=== PATIENT | male | born 1990 | race African-American/Black ===

== ENCOUNTER 2019-04-21 20:53 | Emergency (ER) | payer BC ==
[2019-04-21] MEDS ORDERED: SODIUM CHLORIDE 0.9% 1,000 ML IV STA (21:28)
--- NOTE | 2019-04-21 22:00 | XR ---
EXAMINATION TYPE: XR chest 2V DATE OF EXAM: 04/21/2019 COMPARISON: NONE HISTORY: Chest tightness TECHNIQUE: Frontal and lateral views of the chest are obtained. FINDINGS: Heart and mediastinum are normal. Lungs are clear. Diaphragm is normal. There are chest le ads. IMPRESSION: Normal chest.
[2019-04-21 22:05] LABS: Basophils # (A) 0.1 k/uL (0-0.2); Basophils % (A) 1 %; Eosinophils # (A) 0.1 k/uL (0-0.7); Eosinophils % (A) 1 %; HCT 40.7 % (39.0-53.0); HGB 13.6 gm/dL (13.0-17.5); Lymphocytes # (A) 2.2 k/uL (1.0-4.8); Lymphocytes % (A) 29 %; MCHC 33.4 g/dL (31.0-37.0); MCV 80.7 fL (80.0-100.0); Mean Platelet Volume 7.2; Monocytes # (A) 0.4 k/uL (0-1.0); Monocytes % (A) 6 %; Neutrophils # (A) 4.7 k/uL (1.3-7.7); Neutrophils % (A) 62 %; Platelet Count 230 k/uL (150-450); RBC 5.04 m/uL (4.30-5.90); RDW 14.2 % (11.5-15.5); WBC 7.6 k/uL (3.8-10.6)
[2019-04-21 22:22] LABS: ALT 25 U/L (21-72); AST 24 U/L (17-59); African American GFR (CKD) >90 (>60 ml/min/1.73 sqM); Albumin 4.5 g/dL (3.5-5.0); Alkaline Phosphatase 70 U/L (38-126); Anion Gap 10 mmol/L; Blood Urea Nitrogen 10 mg/dL (9-20); Calcium 9.9 mg/dL (8.4-10.2); Carbon Dioxide 25 mmol/L (22-30); Chloride 103 mmol/L (98-107); Glucose 120 mg/dL (74-99); Potassium 4.5 mmol/L (3.5-5.1); Sodium 138 mmol/L (137-145); Total Bilirubin 0.7 mg/dL (0.2-1.3); Total Protein 8.1 g/dL (6.3-8.2)
--- NOTE | 2019-04-21 22:26 | ED ---
Dizziness HPI - General Chief Complaint: Syncope Stated Complaint: Dizziness Time Seen by Provider: 04/21/19 21:13 Source: patient Mode of arrival: ambulatory Limitations: no limitations - History of Present Illness Initial Comments: Patient is a 28-year-old male presenting to the emergency Department with complaints of feeling lightheaded for the past 3 days. Patient states yesterday he had a few episodes of shortness of breath along with palpitations that lasted a few minutes each time. Today patient experienced some numbness down the left arm as well as into the left leg and he got concerned and came to the ER. Patient denies any chest pain at this time. Patient states he has never had this experience before. Patient denies history of heart disease. Patient denies any previous surgeries. Patient denies smoking or other drug use. Pat ient denies fever, chills, nausea, vomiting, diarrhea. Patient denies recent travel or history of DVT. Patient has no other complaints at this time. Upon arrival to ER, vital signs stable, afebrile. - Related Data Allergies Allergy/AdvReac Type Severity Reaction Status Date / Time No Known Allergies Allergy Verified 04/21/19 21:01 Review of Systems ROS Statement: Those systems with pertinent positive or pertinent negative responses have been documented in the HPI. ROS Other: All systems not noted in ROS Statement are negative. Past Medical History Past Medical History: No Reported History History of Any Multi-Drug Resistant Organisms: None Reported Past Surgical History: No Surgical Hx Reported Past Psychological History: No Psychological Hx Reported Smoking Status: Never smoker Past Alcohol Use History: None Reported Past Drug Use History: None Reported General Exam - General Exam Comments Initial Comments: GENERAL: Well-appearing, well-nourished and in no acute distress. HEAD: Atraumatic, normocephalic. EYES: Pupils equal round and reactive to light, extraocular movements intact, sclera anicteric, conjunctiva are normal. ENT: TMs normal, nares patent, oropharynx clear without exudates. Moist mucous membranes. NECK: Normal range of motion, supple without lymphadenopathy or JVD. LUNGS: Breath sounds clear to auscultation bilaterally and equal. No wheezes rales or rhonchi. HEART: Regular rate and rhythm without murmurs, rubs or gallops. ABDOMEN: Soft, nontender, normoactive bowel sounds. No guarding, no rebound. No masses appreciated. : Deferred EXTREMITIES: Normal range of motion, no pitting or edema. No clubbing or cyanosis. NEUROLOGICAL: Cranial nerves II through XII grossly intact. Normal speech, normal gait. Sensation equal in bilateral upper and lower extremities. Strength 5 out of 5 upper and lower extremities. PSYCH: Normal mood, normal affect. SKIN: Warm, Dry, normal turgor, no rashes or lesions noted. Limitations: no limitations Course Vital Signs 04/21/19 04/21/19 04/21/19 20:58 22:38 23:24 Temperature 98.3 F 98 F 99.4 F Pulse Rate 87 80 81 Respiratory 16 18 20 Rate Blood Pressure 143/95 137/97 131/84 O2 Sat by Pulse 98 98 98 Oximetry EKG Findings - EKG Comments: EKG Findings:: Ventricular rate 83, LA interval 212, QTC 418. Sinus rhythm with first-degree AV block. Medical Decision Making - Medical Decision Making Patient is a 28-year-old male presenting with lightheadedness 3 days as well as shortness of breath and palpitation episodes yesterday. Patient also reports left arm numbness that started today. She denies history of heart disease, DVTs, PEs. Upon arrival to ER vital signs are stable, afebrile. Patient's exam is unremarkable. CBC, CMP is within normal limits. Coags are normal. D-dimer is negative. Troponin is normal. UA and tox screen are both normal. EKG shows first-degree AV block. Was discussed with patient that his symptoms could be related to anxiety. Patient does not currently have a PCP but does have one in mind don't make an appointment. Return parameters were discussed with the patient he verbalizes understanding. At this time patient is stable for discharge and he is in agreement with this plan of care. Case discussed with Dr. Manzanares. - Lab Data Result diagrams: 04/21/19 21:47 04/21/19 21:47 Lab Results 04/21/19 04/21/19 04/21/19 Range/Units 21:47 21:47 21:47 WBC 7.6 (3.8-10.6) k/uL RBC 5.04 (4.30-5.90) m/uL Hgb 13.6 (13.0-17.5) gm/dL Hct 40.7 (39.0-53.0) % MCV 80.7 (80.0-100.0) fL MCH 27.0 (25.0-35.0) pg MCHC 33.4 (31.0-37.0) g/dL RDW 14.2 (11.5-15.5) % Plt Count 230 (150-450) k/uL Neutrophils % 62 % Lymphocytes % 29 % Monocytes % 6 % Eosinophils % 1 % Basophils % 1 % Neutrophils # 4.7 (1.3-7.7) k/uL Lymphocytes # 2.2 (1.0-4.8) k/uL Monocytes # 0.4 (0-1.0) k/uL Eosinophils # 0.1 (0-0.7) k/uL Basophils # 0.1 (0-0.2) k/uL PT 10.4 (9.0-12.0) sec INR 1.0 (<1.2) APTT 26.7 (22.0-30.0) sec D-Dimer 0.48 (<0.60) mg/L FEU Sodium 138 (137-145) mmol/L Potassium 4.5 (3.5-5.1) mmol/L Chloride 103 (98-107) mmol/L Carbon Dioxide 25 (22-30) mmol/L Anion Gap 10 mmol/L BUN 10 (9-20) mg/dL Creatinine 0.89 (0.66-1.25) mg/dL Est GFR (CKD-EPI)AfAm >90 (>60 ml/min/1.73 sqM) Est GFR (CKD-EPI)NonAf >90 (>60 ml/min/1.73 sqM) Glucose 120 H (74-99) mg/dL Calcium 9.9 (8.4-10.2) mg/dL Total Bilirubin 0.7 (0.2-1.3) mg/dL AST 24 (17-59) U/L ALT 25 (21-72) U/L Alkaline Phosphatase 70 (38-126) U/L Troponin I (0.000-0.034) ng/mL Total Protein 8.1 (6.3-8.2) g/dL Albumin 4.5 (3.5-5.0) g/dL Urine Color Urine Appearance (Clear) Urine pH (5.0-8.0) Ur Specific [place] (1.001-1.035) Urine Protein (Negative) Urine Glucose (UA) (Negative) Urine Ketones (Negative) Urine Blood (Negative) Urine Nitrite (Negative) Urine Bilirubin (Negative) Urine Urobilinogen (<2.0) mg/dL Ur Leukocyte Esterase (Negative) Urine Opiates Screen (NotDetected) Ur Oxycodone Screen (NotDetected) Urine Methadone Screen (NotDetected) Ur Propoxyphene Screen (NotDetected) Ur Barbiturates Screen (NotDetected) U Tricyclic Antidepress (NotDetected) Ur Phencyclidine Scrn (NotDetected) Ur Amphetamines Screen (NotDetected) U Methamphetamines Scrn (NotDetected) U Benzodiazepines Scrn (NotDetected) Urine Cocaine Screen (NotDetected) U Marijuana (THC) Screen (NotDetected) 04/21/19 04/21/19 04/21/19 Range/Units 21:47 22:35 22:35 WBC (3.8-10.6) k/uL RBC (4.30-5.90) m/uL Hgb (13.0-17.5) gm/dL Hct (39.0-53.0) % MCV (80.0-100.0) fL MCH (25.0-35.0) pg MCHC (31.0-37.0) g/dL RDW (11.5-15.5) % Plt Count (150-450) k/uL Neutrophils % % Lymphocytes % % Monocytes % % Eosinophils % % Basophils % % Neutrophils # (1.3-7.7) k/uL Lymphocytes # (1.0-4.8) k/uL Monocytes # (0-1.0) k/uL Eosinophils # (0-0.7) k/uL Basophils # (0-0.2) k/uL PT (9.0-12.0) sec INR (<1.2) APTT (22.0-30.0) sec D-Dimer (<0.60) mg/L FEU Sodium (137-145) mmol/L Potassium (3.5-5.1) mmol/L Chloride (98-107) mmol/L Carbon Dioxide (22-30) mmol/L Anion Gap mmol/L BUN (9-20) mg/dL Creatinine (0.66-1.25) mg/dL Est GFR (CKD-EPI)AfAm (>60 ml/min/1.73 sqM) Est GFR (CKD-EPI)NonAf (>60 ml/min/1.73 sqM) Glucose (74-99) mg/dL Calcium (8.4-10.2) mg/dL Total Bilirubin (0.2-1.3) mg/dL AST (17-59) U/L ALT (21-72) U/L Alkaline Phosphatase (38-126) U/L Troponin I <0.012 (0.000-0.034) ng/mL Total Protein (6.3-8.2) g/dL Albumin (3.5-5.0) g/dL Urine Color Light Yellow Urine Appearance Clear (Clear) Urine pH 6.0 (5.0-8.0) Ur Specific [place] 1.013 (1.001-1.035) Urine Protein Negative (Negative) Urine Glucose (UA) Negative (Negative) Urine Ketones Negative (Negative) Urine Blood Negative (Negative) Urine Nitrite Negative (Negative) Urine Bilirubin Negative (Negative) Urine Urobilinogen <2.0 (<2.0) mg/dL Ur Leukocyte Esterase Negative (Negative) Urine Opiates Screen Not Detected (NotDetected) Ur Oxycodone Screen Not Detected (NotDetected) Urine Methadone Screen Not Detected (NotDetected) Ur Propoxyphene Screen Not Detected (NotDetected) Ur Barbiturates Screen Not Detected (NotDetected) U Tricyclic Antidepress Not Detected (NotDetected) Ur Phencyclidine Scrn Not Detected (NotDetected) Ur Amphetamines Screen Not Detected (NotDetected) U Methamphetamines Scrn Not Detected (NotDetected) U Benzodiazepines Scrn Not Detected (NotDetected) Urine Cocaine Screen Not Detected (NotDetected) U Marijuana (THC) Screen Not Detected (NotDetected) Disposition Clinical Impression: Lightheadedness, Anxiety, Palpitations Disposition: HOME SELF-CARE Condition: Stable Instructions (If sedation given, give patient instructions): Lightheadedness (ED), Anxiety (ED) Additional Instructions: Please return to the Emergency Department if symptoms worsen or any other concerns. Follow-up with PCP if symptoms continue. Is patient prescribed a controlled substance at d/c from ED?: No Referrals: None,Stated [Primary Care Provider] - 1-2 days
[2019-04-21 22:30] LABS: D-Dimer 0.48 mg/L FEU (<0.60); Partial Thromboplastin Time 26.7 sec (22.0-30.0); Prothrombin Time 10.4 sec (9.0-12.0)
[2019-04-21 23:15] LABS: Appearance,Urine Clear (Clear); Bilirubin,Urine Negative (Negative); Blood,Urine Negative (Negative); Color,Urine Light Yellow; Glucose,Urine (UA) Negative (Negative); Ketones,Urine Negative (Negative); Leukocyte Esterase,Urine Negative (Negative); Nitrite,Urine Negative (Negative); Protein,Urine Negative (Negative); Specific Gravity,Urine 1.013 (1.001-1.035); Urobilinogen,Urine <2.0 mg/dL (<2.0)
[2019-04-21 23:25] VITALS: BP 131/84; PULSE 81; TEMP 99.4
[2019-04-21 23:27] LABS: Amphetamine Screen,Urine Not Detected (NotDetected); Barbiturate Screen,Urine Not Detected (NotDetected); Benzodiazepines Screen,Urine Not Detected (NotDetected); Cocaine Screen,Urine Not Detected (NotDetected); Methadone Screen, Urine Not Detected (NotDetected); Opiate Screen,Urine Not Detected (NotDetected); Oxycodone Screen, Urine Not Detected (NotDetected); Phencyclidine Screen,Urine Not Detected (NotDetected); Tricyclic Antidepressant,Urine Not Detected (NotDetected); Urn Cannabinoid Scrn Not Detected (NotDetected)
[2019-04-21 23:59] VITALS: RESP 18
== END 2019-04-21 23:55 | disposition home or self-care (01) ==
LOC: EC 20:53
DX: F41.9 Anxiety disorder, unspecified (principal); R42 Dizziness and giddiness; I44.0 Atrioventricular block, first degree
CPT/HCPCS: 36415; 71046; 80053; 80306; 81003; 84484; 85025; 85379; 85610; 85730; 93005; 96360; 99284

== ENCOUNTER 2019-04-23 14:08 | Emergency (ER) | payer BC ==
[2019-04-23 14:17] VITALS: RESP 16
--- NOTE | 2019-04-23 15:27 | ED ---
General Adult HPI - General Chief complaint: Neck Pain/Injury Stated complaint: Neck numbness Time Seen by Provider: 04/23/19 14:20 Source: patient Mode of arrival: ambulatory Limitations: no limitations - History of Present Illness Initial comments: Patient is a 28-year-old male presents emergency Department with a chief complaint of numbness and tingling in the left arm. Patient reports symptoms started approximately 2 days ago while he was at work. Patient reports a gradual onset along with a headache. Patient reports that the headache has sin ce resolved but the intermittent numbness and tingling has not. Patient denies any alleviating or aggravating factors. Patient denies any pain but rather discomfort. Patient denies taking medication to alleviate the symptoms. Patient denies any headaches at this time, blurry vision, lightheadedness or dizziness. Patient denies any chest pain, chest but no shortness of breath. Patient denies any trauma to his left arm. Patient denies any muscle weakness. - Related Data Home Medications Medication Instructions Recorded Confirmed Ibuprofen [Motrin Ib] 400 mg PO Q6H PRN 04/23/19 04/23/19 Previous Rx's Medication Instructions Recorded Cyclobenzaprine [Flexeril] 10 mg PO TID PRN #15 tab 04/23/19 Allergies Allergy/AdvReac Type Severity Reaction Status Date / Time No Known Allergies Allergy Verified 04/23/19 14:50 Review of Systems ROS Statement: Those systems with pertinent positive or pertinent negative responses have been documented in the HPI. ROS Other: All systems not noted in ROS Statement are negative. Past Medical History Past Medical History: No Reported History History of Any Multi-Drug Resistant Organisms: None Reported Past Surgical History: No Surgical Hx Reported Past Psychological History: ADD/ADHD Smoking Status: Never smoker Past Alcohol Use History: Occasional Past Drug Use History: None Reported General Exam Limitations: no limitations General appearance: alert, in no apparent distress, obese Head exam: Present: atraumatic, normocephalic, normal inspection Eye exam: Present: normal appearance, PERRL, EOMI Pupils: Present: normal accommodation ENT exam: Present: normal exam, mucous membranes moist, normal external ear exam Neck exam: Present: normal inspection, full ROM Respiratory exam: Present: normal lung sounds bilaterally Cardiovascular Exam: Present: regular rate, normal rhythm, normal heart sounds Extremities exam: Present: normal inspection, full ROM (full range of motion in left shoulder.), normal capillary refill, other (+2 ulnar radial pulses bilaterally. +5 muscle strength in upper extremity bilaterally.). Absent: tenderness Back exam: Present: normal inspection, full ROM Neurological exam: Present: alert, oriented X3 Psychiatric exam: Present: normal affect, normal mood Skin exam: Present: warm, intact, normal color Course Vital Signs 04/23/19 14:13 Temperature 98.5 F Pulse Rate 89 Respiratory 16 Rate Blood Pressure 154/94 O2 Sat by Pulse 98 Oximetry Medical Decision Making - Medical Decision Making patient is 28-year-old male presenting to emergency Department with a chief complaint of numbness and tingling in his left arm. X-ray of the cervical spine is negative for acute fracture or dislocations. Based on physical examination I suspect the patient to have a cervical radiculopathy. Patient does not appear to have pain but rather discomfort. Patient was to follow-up with orthopedics for further management. Patient will be discharged with Flexeril. Patient was not drive or operate heavy machinery taking medication. Strict return parameters were thoroughly discussed the patient was icing and agreeable. Case discussed with physician. Disposition Clinical Impression: Cervical radiculopathy Disposition: HOME SELF-CARE Condition: Stable Instructions (If sedation given, give patient instructions): Cervical Sprain (ED) Additional Instructions: Please follow with [facility] specialist if symptoms not improved. Return to emergency department if symptoms worsen. Is patient prescribed a controlled substance at d/c from ED?: No Referrals: None,Stated [Primary Care Provider] - 1-2 days Herbert Washington DO [Doctor of Osteopathic Medicine] - 1-2 days Time of Disposition: 16:45
--- NOTE | 2019-04-23 16:20 | XR ---
EXAMINATION TYPE: XR cervical spine comp DATE OF EXAM: 04/23/2019 TECHNIQUE: Frontal, lateral, oblique, and open mouth view of the cervical spine are obtained. HISTORY: Pain COMPARISON: None FINDINGS: The cervical spine is visualized in its entirety from C1 thru the top of T1 level, it is s traightened in alignment without evidence of acute fracture or dislocation. The pre-vertebral soft t issue appears within normal limits. The C1-C2 articulation is within normal limits on the open mouth view. Vertebral body heights and disc space heights are maintained. The oblique images are within n ormal limits. Overlying soft tissue is unremarkable. IMPRESSION: As above.
[2019-04-23 17:55] VITALS: BP 148/82; PULSE 83; TEMP 97.9
== END 2019-04-23 17:35 | disposition home or self-care (01) ==
LOC: EC 14:08
DX: M54.12 Radiculopathy, cervical region (principal)
CPT/HCPCS: 72050; 99284

== ENCOUNTER 2019-05-23 15:16 | Emergency (ER) | payer BC, OTHER ==
[2019-05-23] MEDS ORDERED: ORPHENADRINE 30 MG/ML 2 ML VIAL IM STA (15:47)
[2019-05-23] MEDS ORDERED: methylPREDNISolone SOD SUCCI 125 MG/2 ML VIAL IM ONE (15:47)
[2019-05-23] MEDS ORDERED: KETOROLAC 60 MG/2 ML VIAL IM STA (15:47)
--- NOTE | 2019-05-23 16:16 | ED ---
Neck Injury/Pain HPI - General Chief Complaint: Neck Pain/Injury Stated Complaint: dizzy Time Seen by Provider: 05/23/19 15:30 Source: RN notes reviewed, old records reviewed Mode of arrival: ambulatory Limitations: no limitations - History of Present Illness Initial Comments: This is a 20-year-old male, who presents emergency department today for evalu ation for 1 month of neck pain, complains of occasional tingling, signs. Patient states that he sign of cervical radiculopathy. He states that he is not follow-up with PCP or any other specialist. Patient states he also has occasional dizziness with going for the past 6 months. Patient reports no other significant complaints. - Related Data Home Medications Medication Instructions Recorded Confirmed Ibuprofen [Motrin Ib] 400 mg PO Q6H PRN 04/23/19 04/23/19 Previous Rx's Medication Instructions Recorded Cyclobenzaprine [Flexeril] 10 mg PO TID PRN #15 tab 04/23/19 Cyclobenzaprine [Flexeril] 10 mg PO TID #12 tab 05/23/19 Ibuprofen 600 mg PO TID #30 tablet 05/23/19 methylPREDNISolone Dose Pack 4 mg PO DIRECTED #21 package 05/23/19 [Medrol Dose Pack] Allergies Allergy/AdvReac Type Severity Reaction Status Date / Time No Known Allergies Allergy Verified 05/23/19 15:28 Review of Systems ROS Statement: Those systems with pertinent positive or pertinent negative responses have been documented in the HPI. ROS Other: All systems not noted in ROS Statement are negative. Past Medical History Past Medical History: No Reported History History of Any Multi-Drug Resistant Organisms: None Reported Past Surgical History: No Surgical Hx Reported Past Psychological History: ADD/ADHD Smoking Status: Never smoker Past Alcohol Use History: Occasional Past Drug Use History: None Reported General Exam - General Exam Comments Initial Comments: Well-appearing 20-year-old male. No distress. Limitations: no limitations General appearance: alert, in no apparent distress Head exam: Present: atraumatic, normocephalic, normal inspection Eye exam: Present: normal appearance, PERRL, EOMI. Absent: scleral icterus, conjunctival injection, periorbital swelling ENT exam: Present: normal exam, mucous membranes moist Neck exam: Present: tenderness (Some cervical paraspinal tenderness. Full range of motion. He can all extremities. No peripheral paresthesias and sensation in his intact as well as capillary refill is 2 seconds in all extremities.). Absent: normal inspection, meningismus, lymphadenopathy Respiratory exam: Present: normal lung sounds bilaterally Cardiovascular Exam: Present: regular rate, normal rhythm, normal heart sounds. Absent: systolic murmur, diastolic murmur, rubs, gallop, clicks GI/Abdominal exam: Present: soft, normal bowel sounds. Absent: distended, tenderness, guarding, rebound, rigid Extremities exam: Present: normal inspection, full ROM, normal capillary refill. Absent: tenderness, pedal edema, joint swelling, calf tenderness Back exam: Present: normal inspection Neurological exam: Present: alert, oriented X3, CN II-XII intact Psychiatric exam: Present: normal affect, normal mood Course Vital Signs 05/23/19 15:26 Temperature 98.5 F Pulse Rate 86 Respiratory 20 Rate Blood Pressure 144/84 O2 Sat by Pulse 97 Oximetry Medical Decision Making - Medical Decision Making This is a 28-year-old male, presents emergency department today for evaluation for 1 month of chronic neck pain. He does report improvement after taking a Profen. He does report occasional tingling on the arm. Patient at this time has a paracervical spinal tenderness. Patient has no fall or trauma. I discussed getting his x-ray before which did show some straightening. Discussed likely muscle spasm from pinched nerve. Discussed the Patient follow-up with neurology or primary care doctor. Obliteration of the instructions and anti- inflammatory medication. Patient is agreeable to treatment plan will comply. Disposition Clinical Impression: Cervical radiculopathy, Cervical paraspinal muscle spasm Disposition: HOME SELF-CARE Condition: Good Instructions (If sedation given, give patient instructions): Cervical Strain (ED) Additional Instructions: Please use medication as discussed. Please follow up with family doctor if symptoms have not improved over the next two days. Please return to the emergency room if your symptoms increase or worsen or for any other concerns. Prescriptions: Cyclobenzaprine [Flexeril] 10 mg PO TID #12 tab Ibuprofen 600 mg PO TID #30 tablet methylPREDNISolone Dose Pack [Medrol Dose Pack] 4 mg PO DIRECTED #21 package Is patient prescribed a controlled substance at d/c from ED?: No Referrals: None,Stated [Primary Care Provider] - 1-2 days Jaja Servin MD [STAFF PHYSICIAN] - 1-2 days Xander Mccall MD [Medical Doctor] - 1-2 days Malgorzata Cowart MD [STAFF PHYSICIAN] - 1-2 days Time of Disposition: 16:28
[2019-05-23 16:52] VITALS: BP 165/81; PULSE 85; RESP 18; TEMP 98.4
== END 2019-05-23 16:50 | disposition home or self-care (01) ==
LOC: EC 15:16
DX: M54.12 Radiculopathy, cervical region (principal); M62.838 Other muscle spasm; R42 Dizziness and giddiness
CPT/HCPCS: 99283; 96372 ×3; J2360; J2930; J1885